=== PATIENT | male | born 1940 | race Caucasian/White ===

== ENCOUNTER 2018-06-18 15:18 | Inpatient (IN) | payer MEDICARE, OTHER, MEDICAID ==
[2018-06-18 15:55] LABS: ADD MAN DIFF? NO
[2018-06-18] MEDS: SODIUM CHLORIDE 0.9% 1L BAG IV* (15:59)
[2018-06-18] MEDS: CEFEPIME 2GM/50 ML (PMX) 50 ML IVPB (16:00)
[2018-06-18 16:04] LABS: BASOPHILS % 0.3 % (0.0-2.0); EOSINOPHILS # 0.1 10^3/ul (0.0-0.5); EOSINOPHILS % 0.5 % (0.0-7.0); HEMATOCRIT 36.1 % (42.0-52.0); HEMOGLOBIN 11.8 g/dl (14.0-18.0); LYMPHOCYTES # 0.9 10^3/ul (0.8-2.9); LYMPHOCYTES % 5.4 % (15.0-51.0); MEAN CORPUSCULAR HGB CONC 32.7 g/dl (32.0-37.0); MEAN CORPUSCULAR VOLUME 88.7 fl (82.0-101.0); MEAN PLATELET VOLUME 9.4 fl (7.4-10.4); MONOCYTE # 0.8 10^3/ul (0.3-0.9); MONOCYTES % 5.2 % (0.0-11.0); NEUTROPHIL # 13.9 10^3/ul (1.6-7.5); PLATELET COUNT 217 10^3/UL (140-415); RED BLOOD COUNT 4.07 10^6/ul (4.70-6.10); RED CELL DISTRIBUTION WIDTH 14.8 % (11.5-14.5)
[2018-06-18 16:04] LABS: WHITE BLOOD COUNT 15.8 10^3/ul (4.8-10.8)
[2018-06-18 16:08] LABS: ADD UMIC YES; UR ASCORBIC ACID NEGATIVE (NEGATIVE); UR BILIRUBIN (Dip) NEGATIVE (NEGATIVE); UR BLOOD (Dip) 1+ mg/dL (NEGATIVE); UR CLARITY SLIGHTLY CLOUDY (CLEAR); UR COLOR YELLOW (YELLOW); UR GLUCOSE (Dip) NEGATIVE (NEGATIVE); UR KETONES (Dip) NEGATIVE (NEGATIVE); UR LEUKOCYTE ESTERASE (Dip) TRACE Leu/ul (NEGATIVE); UR NITRITE (Dip) NEGATIVE (NEGATIVE); UR RBC 21 /HPF (0-5); UR SPECIFIC GRAVITY (Dip) 1.012 (1.003-1.030); UR TOTAL PROTEIN (Dip) 1+ mg/dl (NEGATIVE); UR UROBILINOGEN (Dip) NEGATIVE (NEGATIVE); UR WBC 29 /HPF (0-5)
[2018-06-18 16:23] LABS: LACTIC ACID 1.1 mmol/L (0.5-2.0)
[2018-06-18 16:23] LABS: ALANINE AMINOTRANSFERASE 29 IU/L (13-69); ALBUMIN 3.5 g/dl (3.3-4.9); ALBUMIN/GLOBULIN RATIO 1.06; ALKALINE PHOSPHATASE 126 IU/L (42-121); ANION GAP 9 (5-13); ASPARTATE AMINO TRANSFERASE 19 IU/L (15-46); BILIRUBIN,INDIRECT 0.3 mg/dl (0-1.1); BILIRUBIN,TOTAL 0.3 mg/dl (0.2-1.3); BLOOD UREA NITROGEN 28 mg/dl (7-20); CARBON DIOXIDE 33 mmol/L (21-31); CHLORIDE 96 mmol/L (97-110); CREATININE 0.92 mg/dl (0.61-1.24); GLUCOSE 224 mg/dl (70-220); LIPASE 36 U/L (23-300); POTASSIUM 3.8 mmol/L (3.5-5.1); SODIUM 138 mmol/L (135-144); TOTAL PROTEIN 6.8 g/dl (6.1-8.1)
[2018-06-18] MEDS: IPRATROPIUM (NEB) 0.5 MG/2.5 ML AMP INH (16:23)
[2018-06-18] MEDS: ALBUTEROL 0.5% (NEB) 2.5 MG/0.5 ML AMP INH (16:23)
[2018-06-18 16:24] LABS: AMYLASE < 30 U/L (11-123)
[2018-06-18] MEDS: ACETAMINOPHEN 500 MG TAB PO (16:25)
[2018-06-18 16:30] LABS: INR 1.06; PROTIME 13.9 Sec (11.9-14.9); PT RATIO 1.1
[2018-06-18 16:35] LABS: B-TYPE NATRIURETIC PEPTIDE 402 PG/ML (0-450); TROPONIN-I 0.029 ng/ml (0.000-0.120)
[2018-06-18 16:45] LABS: AADO2 Arterial 130.2 mmHg (7.0-24.0); Allen Test ACCEPTAB; Arterial Base Excess 3.3 mmol/L (-3.0-3); Arterial Blood Gas Oxygen Sat 97.2 mmHG (95.0-100.0); Arterial COHb 0.6 % (0.0-3.0); Arterial Fraction of Oxyhgb 96.3 % (93.0-99.0); Arterial HCO3 28.4 mmol/L (22.0-26.0); Arterial MetHb 0.3 % (0.0-1.5); Arterial Total Hemglobin 12.7 g/dl (12.0-18.0); Arterial pCO2 45.3 mmhg (35-45); MODE NASAL CANNULA; Site Left Radial
[2018-06-18] MEDS: VANCOMYCIN 1 GM (PMX) 250 ML IVPB (16:47)
[2018-06-18] MEDS ORDERED: HYPROMELLOSE 0.5% 15 ML OPH BOTH EYES (18:00)
[2018-06-18] MEDS ORDERED: MAGNESIUM HYDROXIDE 30ML CUP PO (18:00)
[2018-06-18] MEDS ORDERED: GLUCAGON 1 MG INJ IM (18:00)
[2018-06-18] MEDS ORDERED: ACETAMINOPHEN 325 MG TAB PO (18:00)
[2018-06-18] MEDS ORDERED: ONDANSETRON 4 MG INJ IV (18:00)
[2018-06-18] MEDS ORDERED: GLUCOSE GEL 15 GRAM TUBE BUCCAL (18:00)
[2018-06-18] MEDS ORDERED: DEXTROSE 50% 50 ML SYRINGE IV ×2 (18:00)
[2018-06-18] MEDS ORDERED: GLUCOSE GEL 15 GRAM TUBE PO ×2 (18:00)
[2018-06-18] MEDS: INSULIN ASPART [NOVOLOG] 3 ML PEN SC (21:00)
[2018-06-18] MEDS: CEFEPIME 1GM/50 ML (PMX) 50 ML IVPB (21:45)
[2018-06-18] MEDS: BUMETANIDE 1 MG TAB PO (21:45)
[2018-06-18] MEDS: ATORVASTATIN 20 MG TAB PO (21:46)
[2018-06-18] MEDS: GABAPENTIN 400 MG CAP PO (21:47)
[2018-06-18] MEDS: DOXAZOSIN 4 MG TAB PO (21:49)
[2018-06-18] MEDS: BENAZEPRIL 40 MG TAB PO (21:49)
[2018-06-18] MEDS: INSULIN DETEMIR [LEVEMIR] (100 UNITS/ML) SYG SC (21:54)
[2018-06-18] MEDS: ALBUTEROL/IPRATROPIUM (NEB) 3 ML AMP NEB (22:30)
[2018-06-19] MEDS: ACCU-CHEK XX (02:00)
[2018-06-19] MEDS: GUAIFENESIN/DM 5ML CUP PO ×2 (04:18→22:31)
[2018-06-19] MEDS: BUMETANIDE 1 MG TAB PO ×2 (05:49→17:27)
[2018-06-19 05:50] LABS: ADD MAN DIFF? NO
[2018-06-19 05:58] LABS: BASOPHIL # 0.1 10^3/ul (0.0-0.1); BASOPHILS % 0.3 % (0.0-2.0); EOSINOPHILS # 0.2 10^3/ul (0.0-0.5); EOSINOPHILS % 1.1 % (0.0-7.0); HEMATOCRIT 31.5 % (42.0-52.0); HEMOGLOBIN 10.2 g/dl (14.0-18.0); LYMPHOCYTES # 1.4 10^3/ul (0.8-2.9); LYMPHOCYTES % 9.8 % (15.0-51.0); MEAN CORPUSCULAR HGB CONC 32.4 g/dl (32.0-37.0); MEAN CORPUSCULAR VOLUME 89.5 fl (82.0-101.0); MEAN PLATELET VOLUME 9.6 fl (7.4-10.4); MONOCYTES % 6.8 % (0.0-11.0); NEUTROPHIL # 11.7 10^3/ul (1.6-7.5); NEUTROPHILS % 81.5 % (39.0-77.0); PLATELET COUNT 196 10^3/UL (140-415); RED BLOOD COUNT 3.52 10^6/ul (4.70-6.10); RED CELL DISTRIBUTION WIDTH 15.2 % (11.5-14.5)
[2018-06-19 05:58] LABS: WHITE BLOOD COUNT 14.4 10^3/ul (4.8-10.8)
[2018-06-19 06:32] LABS: ANION GAP 7 (5-13); BLOOD UREA NITROGEN 31 mg/dl (7-20); CALCIUM 8.4 mg/dl (8.4-10.2); CARBON DIOXIDE 31 mmol/L (21-31); CHLORIDE 100 mmol/L (97-110); CREATININE 0.95 mg/dl (0.61-1.24); GLUCOSE 151 mg/dl (70-220); MAGNESIUM 1.8 mg/dl (1.7-2.5); POTASSIUM 3.5 mmol/L (3.5-5.1); SODIUM 138 mmol/L (135-144)
[2018-06-19] MEDS ORDERED: ALBUTEROL/IPRATROPIUM (NEB) 3 ML AMP NEB (07:30)
[2018-06-19] MEDS: INSULIN ASPART [NOVOLOG] 3 ML PEN SC ×4 (08:00→20:57)
[2018-06-19] MEDS: BENAZEPRIL 40 MG TAB PO ×2 (08:40→20:51)
[2018-06-19] MEDS: CEFEPIME 1GM/50 ML (PMX) 50 ML IVPB ×2 (08:40→20:43)
[2018-06-19] MEDS: ASPIRIN 81 MG TAB PO (08:40)
[2018-06-19] MEDS: FINASTERIDE 5 MG TAB PO (08:40)
[2018-06-19] MEDS: ESCITALOPRAM 10 MG TAB PO (08:41)
[2018-06-19] MEDS: METOLAZONE 2.5 MG TAB PO (08:41)
[2018-06-19] MEDS: MULTIVITAMINS THERAPEUTIC TAB PO (08:41)
[2018-06-19] MEDS: FAMOTIDINE 20 MG TAB PO (08:41)
[2018-06-19] MEDS: FOLIC ACID 1 MG TAB PO (08:41)
[2018-06-19] MEDS: ENOXAPARIN 40 MG/0.4 ML SYG SC (08:48)
[2018-06-19] MEDS: FERROUS SULFATE (EC) 325 MG TAB PO (08:50)
[2018-06-19] MEDS: ACETAMINOPHEN 325 MG TAB PO (10:12)
[2018-06-19] MEDS: GABAPENTIN 400 MG CAP PO (20:43)
[2018-06-19] MEDS: ATORVASTATIN 20 MG TAB PO (20:43)
[2018-06-19] MEDS: DOXAZOSIN 4 MG TAB PO (20:52)
[2018-06-19] MEDS: INSULIN DETEMIR [LEVEMIR] (100 UNITS/ML) SYG SC (20:57)
[2018-06-20] MEDS: ACCU-CHEK XX (02:00)
[2018-06-20 05:40] LABS: ADD MAN DIFF? NO
[2018-06-20] MEDS: BUMETANIDE 1 MG TAB PO ×2 (05:41→17:46)
[2018-06-20 05:47] LABS: BASOPHILS % 0.4 % (0.0-2.0); EOSINOPHILS # 0.4 10^3/ul (0.0-0.5); EOSINOPHILS % 3.9 % (0.0-7.0); HEMATOCRIT 32.1 % (42.0-52.0); HEMOGLOBIN 10.6 g/dl (14.0-18.0); LYMPHOCYTES # 1.4 10^3/ul (0.8-2.9); MEAN CORPUSCULAR HEMOGLOBIN 29.4 pg (29.0-33.0); MEAN CORPUSCULAR VOLUME 89.2 fl (82.0-101.0); MEAN PLATELET VOLUME 9.7 fl (7.4-10.4); MONOCYTE # 0.9 10^3/ul (0.3-0.9); NEUTROPHIL # 8.2 10^3/ul (1.6-7.5); NEUTROPHILS % 74.2 % (39.0-77.0); PLATELET COUNT 207 10^3/UL (140-415)
[2018-06-20 06:33] LABS: ANION GAP 8 (5-13); BLOOD UREA NITROGEN 26 mg/dl (7-20); CALCIUM 8.5 mg/dl (8.4-10.2); CARBON DIOXIDE 33 mmol/L (21-31); CHLORIDE 98 mmol/L (97-110); CREATININE 0.77 mg/dl (0.61-1.24); GLUCOSE 123 mg/dl (70-220); MAGNESIUM 1.9 mg/dl (1.7-2.5); PHOSPHORUS 3.2 mg/dl (2.5-4.9); POTASSIUM 3.6 mmol/L (3.5-5.1); SODIUM 139 mmol/L (135-144)
[2018-06-20] MEDS: INSULIN ASPART [NOVOLOG] 3 ML PEN SC ×4 (08:00→21:00)
[2018-06-20] MEDS: FERROUS SULFATE (EC) 325 MG TAB PO (10:27)
[2018-06-20] MEDS: FOLIC ACID 1 MG TAB PO (10:28)
[2018-06-20] MEDS: ESCITALOPRAM 10 MG TAB PO (10:28)
[2018-06-20] MEDS: FINASTERIDE 5 MG TAB PO (10:28)
[2018-06-20] MEDS: BENAZEPRIL 40 MG TAB PO ×2 (10:29→21:57)
[2018-06-20] MEDS: MULTIVITAMINS THERAPEUTIC TAB PO (10:29)
[2018-06-20] MEDS: FAMOTIDINE 20 MG TAB PO (10:29)
[2018-06-20] MEDS: ASPIRIN 81 MG TAB PO (10:29)
[2018-06-20] MEDS: ENOXAPARIN 40 MG/0.4 ML SYG SC (10:37)
[2018-06-20] MEDS: CEFEPIME 1GM/50 ML (PMX) 50 ML IVPB ×2 (11:16→21:55)
[2018-06-20] MEDS: BALSAM PERU/CASTOR OIL 60 GM TUBE TOP (14:00)
[2018-06-20] MEDS: DOXAZOSIN 4 MG TAB PO (21:56)
[2018-06-20] MEDS: ATORVASTATIN 20 MG TAB PO (21:56)
[2018-06-20] MEDS: GABAPENTIN 400 MG CAP PO (21:57)
[2018-06-20] MEDS: MUPIROCIN 2% 22 GM OINT TOP (21:58)
[2018-06-20] MEDS: INSULIN DETEMIR [LEVEMIR] (100 UNITS/ML) SYG SC (22:09)
[2018-06-21] MEDS: ACCU-CHEK XX ×2 (01:46→23:15)
[2018-06-21 05:31] LABS: ADD MAN DIFF? NO
[2018-06-21 05:33] LABS: WHITE BLOOD COUNT 10.5 10^3/ul (4.8-10.8)
[2018-06-21 05:33] LABS: BASOPHIL # 0.1 10^3/ul (0.0-0.1); BASOPHILS % 0.5 % (0.0-2.0); EOSINOPHILS # 0.4 10^3/ul (0.0-0.5); EOSINOPHILS % 4.1 % (0.0-7.0); HEMOGLOBIN 11.3 g/dl (14.0-18.0); LYMPHOCYTES # 1.8 10^3/ul (0.8-2.9); LYMPHOCYTES % 16.8 % (15.0-51.0); MEAN CORPUSCULAR HGB CONC 32.3 g/dl (32.0-37.0); MEAN CORPUSCULAR VOLUME 89.7 fl (82.0-101.0); MEAN PLATELET VOLUME 9.1 fl (7.4-10.4); MONOCYTE # 0.9 10^3/ul (0.3-0.9); MONOCYTES % 8.3 % (0.0-11.0); NEUTROPHIL # 7.4 10^3/ul (1.6-7.5); NEUTROPHILS % 69.8 % (39.0-77.0); PLATELET COUNT 235 10^3/UL (140-415); RED CELL DISTRIBUTION WIDTH 14.7 % (11.5-14.5)
[2018-06-21 06:08] LABS: ANION GAP 8 (5-13); BLOOD UREA NITROGEN 27 mg/dl (7-20); CALCIUM 8.8 mg/dl (8.4-10.2); CARBON DIOXIDE 34 mmol/L (21-31); CHLORIDE 98 mmol/L (97-110); CREATININE 0.81 mg/dl (0.61-1.24); GLUCOSE 126 mg/dl (70-220); MAGNESIUM 1.9 mg/dl (1.7-2.5); PHOSPHORUS 3.4 mg/dl (2.5-4.9); POTASSIUM 3.8 mmol/L (3.5-5.1); SODIUM 140 mmol/L (135-144)
[2018-06-21] MEDS: BUMETANIDE 1 MG TAB PO ×2 (06:22→17:29)
[2018-06-21] MEDS: INSULIN ASPART [NOVOLOG] 3 ML PEN SC ×4 (08:00→20:41)
[2018-06-21] MEDS: FINASTERIDE 5 MG TAB PO (10:05)
[2018-06-21] MEDS: ESCITALOPRAM 10 MG TAB PO (10:05)
[2018-06-21] MEDS: ASPIRIN 81 MG TAB PO (10:06)
[2018-06-21] MEDS: MULTIVITAMINS THERAPEUTIC TAB PO (10:06)
[2018-06-21] MEDS: FAMOTIDINE 20 MG TAB PO (10:06)
[2018-06-21] MEDS: BENAZEPRIL 40 MG TAB PO ×2 (10:07→20:42)
[2018-06-21] MEDS: FERROUS SULFATE (EC) 325 MG TAB PO (10:07)
[2018-06-21] MEDS: FOLIC ACID 1 MG TAB PO (10:07)
[2018-06-21] MEDS: CEFEPIME 1GM/50 ML (PMX) 50 ML IVPB ×2 (10:08→20:42)
[2018-06-21] MEDS: ENOXAPARIN 40 MG/0.4 ML SYG SC (10:27)
[2018-06-21] MEDS: METOLAZONE 2.5 MG TAB PO (11:39)
[2018-06-21] MEDS: MUPIROCIN 2% 22 GM OINT TOP ×2 (11:39→20:44)
[2018-06-21] MEDS: BALSAM PERU/CASTOR OIL 60 GM TUBE TOP (11:39)
[2018-06-21] MEDS: GABAPENTIN 400 MG CAP PO (20:42)
[2018-06-21] MEDS: ATORVASTATIN 20 MG TAB PO (20:42)
[2018-06-21] MEDS: DOXAZOSIN 4 MG TAB PO (20:43)
[2018-06-21] MEDS: INSULIN DETEMIR [LEVEMIR] (100 UNITS/ML) SYG SC (20:55)
[2018-06-22] MEDS: GUAIFENESIN/DM 5ML CUP PO (02:07)
[2018-06-22] MEDS: HYDROCODONE/APAP (5/325) TAB PO (02:07)
[2018-06-22] MEDS: BUMETANIDE 1 MG TAB PO ×2 (05:50→17:26)
[2018-06-22] MEDS: INSULIN ASPART [NOVOLOG] 3 ML PEN SC ×4 (08:00→20:51)
[2018-06-22] MEDS: FERROUS SULFATE (EC) 325 MG TAB PO (09:46)
[2018-06-22] MEDS: MULTIVITAMINS THERAPEUTIC TAB PO (09:46)
[2018-06-22] MEDS: FAMOTIDINE 20 MG TAB PO (09:46)
[2018-06-22] MEDS: FINASTERIDE 5 MG TAB PO (09:46)
[2018-06-22] MEDS: BENAZEPRIL 40 MG TAB PO ×2 (09:46→20:58)
[2018-06-22] MEDS: ESCITALOPRAM 10 MG TAB PO (09:47)
[2018-06-22] MEDS: ASPIRIN 81 MG TAB PO (09:47)
[2018-06-22] MEDS: ACETAMINOPHEN 500 MG TAB PO ×2 (09:48→20:48)
[2018-06-22] MEDS: AMLODIPINE 5 MG TAB PO (09:48)
[2018-06-22] MEDS: CEFEPIME 1GM/50 ML (PMX) 50 ML IVPB ×2 (09:49→20:53)
[2018-06-22] MEDS: ENOXAPARIN 40 MG/0.4 ML SYG SC (09:53)
[2018-06-22] MEDS: MUPIROCIN 2% 22 GM OINT TOP ×2 (09:53→20:57)
[2018-06-22] MEDS: BALSAM PERU/CASTOR OIL 60 GM TUBE TOP (09:53)
[2018-06-22] MEDS: FOLIC ACID 1 MG TAB PO (09:54)
[2018-06-22] MEDS: ACETAZOLAMIDE 500 MG INJ IV (12:25)
[2018-06-22] MEDS: ACCU-CHEK XX (20:51)
[2018-06-22] MEDS: GABAPENTIN 400 MG CAP PO (20:57)
[2018-06-22] MEDS: ATORVASTATIN 20 MG TAB PO (20:57)
[2018-06-22] MEDS: DOXAZOSIN 4 MG TAB PO (20:58)
[2018-06-22] MEDS: INSULIN DETEMIR [LEVEMIR] (100 UNITS/ML) SYG SC (21:07)
[2018-06-23 05:31] LABS: ADD MAN DIFF? NO
[2018-06-23 05:38] LABS: BASOPHIL # 0.1 10^3/ul (0.0-0.1); BASOPHILS % 1.1 % (0.0-2.0); EOSINOPHILS # 0.4 10^3/ul (0.0-0.5); EOSINOPHILS % 5.1 % (0.0-7.0); HEMATOCRIT 33.6 % (42.0-52.0); LYMPHOCYTES # 1.6 10^3/ul (0.8-2.9); LYMPHOCYTES % 19.1 % (15.0-51.0); MEAN CORPUSCULAR HEMOGLOBIN 29.2 pg (29.0-33.0); MEAN CORPUSCULAR HGB CONC 32.7 g/dl (32.0-37.0); MEAN CORPUSCULAR VOLUME 89.1 fl (82.0-101.0); MEAN PLATELET VOLUME 9.2 fl (7.4-10.4); MONOCYTE # 0.8 10^3/ul (0.3-0.9); MONOCYTES % 9.5 % (0.0-11.0); NEUTROPHIL # 5.5 10^3/ul (1.6-7.5); NEUTROPHILS % 64.6 % (39.0-77.0); PLATELET COUNT 219 10^3/UL (140-415); RED BLOOD COUNT 3.77 10^6/ul (4.70-6.10); RED CELL DISTRIBUTION WIDTH 14.5 % (11.5-14.5)
[2018-06-23 05:38] LABS: WHITE BLOOD COUNT 8.4 10^3/ul (4.8-10.8)
[2018-06-23 06:36] LABS: ANION GAP 8 (5-13); BLOOD UREA NITROGEN 33 mg/dl (7-20); CALCIUM 9.3 mg/dl (8.4-10.2); CARBON DIOXIDE 35 mmol/L (21-31); CHLORIDE 94 mmol/L (97-110); GLUCOSE 123 mg/dl (70-220); PHOSPHORUS 4.4 mg/dl (2.5-4.9); POTASSIUM 3.5 mmol/L (3.5-5.1); SODIUM 137 mmol/L (135-144)
[2018-06-23] MEDS: BUMETANIDE 1 MG TAB PO ×2 (06:48→17:46)
[2018-06-23] MEDS: INSULIN ASPART [NOVOLOG] 3 ML PEN SC ×5 (08:00→20:53)
[2018-06-23] MEDS: BALSAM PERU/CASTOR OIL 60 GM TUBE TOP (08:56)
[2018-06-23] MEDS: MUPIROCIN 2% 22 GM OINT TOP ×2 (08:56→20:43)
[2018-06-23] MEDS: CEFEPIME 1GM/50 ML (PMX) 50 ML IVPB ×2 (08:57→20:43)
[2018-06-23] MEDS: ESCITALOPRAM 10 MG TAB PO ×2 (09:00→14:24)
[2018-06-23] MEDS: AMLODIPINE 5 MG TAB PO ×2 (09:00→14:23)
[2018-06-23] MEDS: BENAZEPRIL 40 MG TAB PO ×3 (09:00→20:47)
[2018-06-23] MEDS: FINASTERIDE 5 MG TAB PO ×2 (09:00→14:21)
[2018-06-23] MEDS: METOLAZONE 2.5 MG TAB PO ×2 (09:00→14:20)
[2018-06-23] MEDS: MULTIVITAMINS THERAPEUTIC TAB PO ×2 (09:00→14:21)
[2018-06-23] MEDS: ASPIRIN 81 MG TAB PO (09:00)
[2018-06-23] MEDS: FERROUS SULFATE (EC) 325 MG TAB PO ×2 (09:00→14:22)
[2018-06-23] MEDS: FOLIC ACID 1 MG TAB PO ×2 (09:00→14:22)
[2018-06-23] MEDS: FAMOTIDINE 20 MG TAB PO ×2 (09:00→14:21)
[2018-06-23] MEDS ORDERED: PROPOFOL 20 ML (12:27)
[2018-06-23] MEDS ORDERED: GLYCOPYRROLATE 0.4 MG INJ (12:27)
[2018-06-23] MEDS ORDERED: LIDOCAINE 2% (SDV) 5 ML INJ (12:27)
[2018-06-23] MEDS ORDERED: MIDAZOLAM 1 MG/ML 2 ML INJ (12:27)
[2018-06-23] MEDS ORDERED: FENTAnyl 50 MCG/ML VIAL (12:27)
[2018-06-23] MEDS ORDERED: NEOSTIGMINE 3 MG/3 ML SYRINGE (12:27)
[2018-06-23] MEDS ORDERED: ROCURONIUM 50 MG INJ (12:27)
[2018-06-23] MEDS ORDERED: ONDANSETRON 4 MG INJ (12:32)
[2018-06-23] MEDS ORDERED: DEXAMETHASONE 4 MG/ML 1 ML INJ (12:32)
[2018-06-23] MEDS ORDERED: KETAMINE (50 MG/ML) 10 ML VIAL (12:42)
[2018-06-23] MEDS ORDERED: CEFAZOLIN 1 GM INJ (13:05)
[2018-06-23] MEDS: BUPIVACAINE 0.5%/EPI (SDV) 30 ML INJ (13:25)
[2018-06-23] MEDS: LIDOCAINE 1% (STERILE-PAK) 30 ML INJ (13:26)
[2018-06-23] MEDS ORDERED: DIPHENHYDRAMINE 50 MG INJ IV (13:30)
[2018-06-23] MEDS ORDERED: FENTAnyl 50 MCG/ML VIAL IV (13:30)
[2018-06-23] MEDS ORDERED: hydrALAzine 20 MG INJ IV (13:30)
[2018-06-23] MEDS ORDERED: HYDROmorphONE 1 MG/5 ML IV SYRINGE IV (13:30)
[2018-06-23] MEDS ORDERED: ONDANSETRON 4 MG INJ IV (13:30)
[2018-06-23] MEDS: DOXAZOSIN 4 MG TAB PO (20:46)
[2018-06-23] MEDS: GABAPENTIN 400 MG CAP PO (20:46)
[2018-06-23] MEDS: ATORVASTATIN 20 MG TAB PO (20:47)
[2018-06-23] MEDS: INSULIN DETEMIR [LEVEMIR] (100 UNITS/ML) SYG SC (20:54)
[2018-06-23] MEDS: GUAIFENESIN/DM 5ML CUP PO (22:47)
[2018-06-23] MEDS: HYDROCODONE/APAP (5/325) TAB PO (22:49)
[2018-06-24] MEDS: ACCU-CHEK XX (02:00)
[2018-06-24] MEDS: BUMETANIDE 1 MG TAB PO ×2 (06:03→17:51)
[2018-06-24 06:40] LABS: ADD MAN DIFF? NO
[2018-06-24 06:55] LABS: BASOPHIL # 0.1 10^3/ul (0.0-0.1); BASOPHILS % 0.8 % (0.0-2.0); EOSINOPHILS # 0.3 10^3/ul (0.0-0.5); EOSINOPHILS % 3.1 % (0.0-7.0); HEMATOCRIT 35.1 % (42.0-52.0); HEMOGLOBIN 11.4 g/dl (14.0-18.0); LYMPHOCYTES # 1.7 10^3/ul (0.8-2.9); LYMPHOCYTES % 17.3 % (15.0-51.0); MEAN CORPUSCULAR HEMOGLOBIN 29.2 pg (29.0-33.0); MEAN CORPUSCULAR HGB CONC 32.5 g/dl (32.0-37.0); MEAN CORPUSCULAR VOLUME 89.8 fl (82.0-101.0); MEAN PLATELET VOLUME 9.5 fl (7.4-10.4); MONOCYTE # 0.8 10^3/ul (0.3-0.9); MONOCYTES % 8.6 % (0.0-11.0); NEUTROPHIL # 6.7 10^3/ul (1.6-7.5); NEUTROPHILS % 69.6 % (39.0-77.0); PLATELET COUNT 237 10^3/UL (140-415); RED BLOOD COUNT 3.91 10^6/ul (4.70-6.10); RED CELL DISTRIBUTION WIDTH 14.6 % (11.5-14.5)
[2018-06-24 06:55] LABS: WHITE BLOOD COUNT 9.6 10^3/ul (4.8-10.8)
[2018-06-24 07:35] LABS: ANION GAP 9 (5-13); BLOOD UREA NITROGEN 37 mg/dl (7-20); CARBON DIOXIDE 32 mmol/L (21-31); CHLORIDE 98 mmol/L (97-110); CREATININE 1.14 mg/dl (0.61-1.24); GLUCOSE 119 mg/dl (70-220); POTASSIUM 3.8 mmol/L (3.5-5.1); SODIUM 139 mmol/L (135-144)
[2018-06-24] MEDS: INSULIN ASPART [NOVOLOG] 3 ML PEN SC ×4 (07:42→21:00)
[2018-06-24] MEDS: CEFEPIME 1GM/50 ML (PMX) 50 ML IVPB ×2 (09:01→20:53)
[2018-06-24] MEDS: FINASTERIDE 5 MG TAB PO (09:03)
[2018-06-24] MEDS: FAMOTIDINE 20 MG TAB PO (09:03)
[2018-06-24] MEDS: MULTIVITAMINS THERAPEUTIC TAB PO (09:03)
[2018-06-24] MEDS: FOLIC ACID 1 MG TAB PO (09:03)
[2018-06-24] MEDS: ASPIRIN 81 MG TAB PO (09:04)
[2018-06-24] MEDS: AMLODIPINE 5 MG TAB PO (09:04)
[2018-06-24] MEDS: BENAZEPRIL 40 MG TAB PO ×2 (09:04→20:58)
[2018-06-24] MEDS: ESCITALOPRAM 10 MG TAB PO (09:04)
[2018-06-24] MEDS: FERROUS SULFATE (EC) 325 MG TAB PO (09:04)
[2018-06-24] MEDS: MUPIROCIN 2% 22 GM OINT TOP ×2 (09:06→21:00)
[2018-06-24] MEDS: BALSAM PERU/CASTOR OIL 60 GM TUBE TOP (09:06)
[2018-06-24] MEDS: DOXYCYCLINE 100 MG in SOD CHLORIDE 0.9% 250 ML IVPB (20:54)
[2018-06-24] MEDS: ATORVASTATIN 20 MG TAB PO (20:56)
[2018-06-24] MEDS: GABAPENTIN 400 MG CAP PO (20:56)
[2018-06-24] MEDS: HYDROCODONE/APAP (5/325) TAB PO (20:59)
[2018-06-24] MEDS: DOXAZOSIN 4 MG TAB PO (20:59)
[2018-06-24] MEDS: INSULIN DETEMIR [LEVEMIR] (100 UNITS/ML) SYG SC (21:03)
[2018-06-24] MEDS: ACETAMINOPHEN 325 MG TAB PO (22:46)
[2018-06-25] MEDS: ACCU-CHEK XX (02:01)
[2018-06-25] MEDS: BUMETANIDE 1 MG TAB PO ×2 (06:12→18:00)
[2018-06-25] MEDS: HYDROCODONE/APAP (5/325) TAB PO (06:34)
[2018-06-25] MEDS: INSULIN ASPART [NOVOLOG] 3 ML PEN SC ×4 (07:34→22:34)
[2018-06-25] MEDS: SODIUM HYPOCHLORITE (1/40) 1 APPLIC BTL IRR (08:38)
[2018-06-25] MEDS: CEFEPIME 1GM/50 ML (PMX) 50 ML IVPB ×2 (08:38→22:29)
[2018-06-25] MEDS: MUPIROCIN 2% 22 GM OINT TOP ×2 (08:41→22:35)
[2018-06-25] MEDS: ASPIRIN 81 MG TAB PO (08:42)
[2018-06-25] MEDS: FERROUS SULFATE (EC) 325 MG TAB PO (08:42)
[2018-06-25] MEDS: BALSAM PERU/CASTOR OIL 60 GM TUBE TOP (08:42)
[2018-06-25] MEDS: MULTIVITAMINS THERAPEUTIC TAB PO (08:42)
[2018-06-25] MEDS: FINASTERIDE 5 MG TAB PO (08:42)
[2018-06-25] MEDS: BENAZEPRIL 40 MG TAB PO ×2 (08:42→22:28)
[2018-06-25] MEDS: ESCITALOPRAM 10 MG TAB PO (08:43)
[2018-06-25] MEDS: AMLODIPINE 5 MG TAB PO (08:43)
[2018-06-25] MEDS: FAMOTIDINE 20 MG TAB PO (08:43)
[2018-06-25] MEDS: FOLIC ACID 1 MG TAB PO (08:44)
[2018-06-25] MEDS: DOXYCYCLINE 100 MG in SOD CHLORIDE 0.9% 250 ML IVPB ×2 (08:48→23:33)
[2018-06-25] MEDS: DOXAZOSIN 4 MG TAB PO (22:28)
[2018-06-25] MEDS: ATORVASTATIN 20 MG TAB PO (22:29)
[2018-06-25] MEDS: GABAPENTIN 400 MG CAP PO (22:32)
[2018-06-25] MEDS: INSULIN DETEMIR [LEVEMIR] (100 UNITS/ML) SYG SC (22:34)
[2018-06-26] MEDS: ACCU-CHEK XX (02:59)
[2018-06-26] MEDS: BUMETANIDE 1 MG TAB PO (06:49)
[2018-06-26] MEDS: INSULIN ASPART [NOVOLOG] 3 ML PEN SC ×2 (08:07→12:00)
[2018-06-26] MEDS: BALSAM PERU/CASTOR OIL 60 GM TUBE TOP (08:12)
[2018-06-26] MEDS: BENAZEPRIL 40 MG TAB PO (08:13)
[2018-06-26] MEDS: CEFEPIME 1GM/50 ML (PMX) 50 ML IVPB (08:13)
[2018-06-26] MEDS: FINASTERIDE 5 MG TAB PO (08:13)
[2018-06-26] MEDS: FERROUS SULFATE (EC) 325 MG TAB PO (08:13)
[2018-06-26] MEDS: ESCITALOPRAM 10 MG TAB PO (08:13)
[2018-06-26] MEDS: ASPIRIN 81 MG TAB PO (08:14)
[2018-06-26] MEDS: MULTIVITAMINS THERAPEUTIC TAB PO (08:14)
[2018-06-26] MEDS: FOLIC ACID 1 MG TAB PO (08:14)
[2018-06-26] MEDS: FAMOTIDINE 20 MG TAB PO (08:14)
[2018-06-26] MEDS: AMLODIPINE 5 MG TAB PO (08:14)
[2018-06-26] MEDS: MUPIROCIN 2% 22 GM OINT TOP (08:17)
[2018-06-26] MEDS: SODIUM HYPOCHLORITE (1/40) 1 APPLIC BTL IRR (08:17)
[2018-06-26] MEDS: DOXYCYCLINE 100 MG in SOD CHLORIDE 0.9% 250 ML IVPB (08:31)
[2018-06-26] MEDS: METOLAZONE 2.5 MG TAB PO (10:02)
[2018-06-26] MEDS ORDERED: AMOXICILLIN/CLAV 875 MG TAB PO (21:00)
== END 2018-06-26 13:56 | DRG 871 ==
LOC: E/R 15:18 → 6WM 06-20 11:35
PROC: 0W9L0ZZ Drainage of Lower Back, Open Approach (ICD-10-PCS; principal; 2018-06-23 12:33)
PROC: 4A033R1 Measurement of Arterial Saturation, Peripheral, Percutaneous Approach (ICD-10-PCS; 2018-06-23 12:33)
DX: A41.9 Sepsis, unspecified organism (principal); J96.21 Acute and chronic respiratory failure with hypoxia; J96.22 Acute and chronic respiratory failure with hypercapnia; N39.0 Urinary tract infection, site not specified; L02.212 Cutaneous abscess of back [any part, except buttock and flank]; E66.2 Morbid (severe) obesity with alveolar hypoventilation; I11.0 Hypertensive heart disease with heart failure; I50.9 Heart failure, unspecified; I25.10 Atherosclerotic heart disease of native coronary artery without angina pectoris; N40.0 Benign prostatic hyperplasia without lower urinary tract symptoms; J44.9 Chronic obstructive pulmonary disease, unspecified; J84.10 Pulmonary fibrosis, unspecified; R13.10 Dysphagia, unspecified; E11.40 Type 2 diabetes mellitus with diabetic neuropathy, unspecified; Z22.322 Carrier or suspected carrier of Methicillin resistant Staphylococcus aureus; Z68.37 Body mass index [BMI] 37.0-37.9, adult
CPT/HCPCS: 36415; 36600; 71045; 76536; 80048; 80053; 81001; 82150; 82803; 82962; 83605; 83690; 83735; 83880; 84100; 84484; 85025; 85610; 85730; 87040; 87070; 87075; 87081; 87086; 92526; 92610; 93005; 93306; 94640; 94644; 94664; 94760; 96374; 96375; 97162; 99291-25